=== PATIENT | female | born 1980 | race Caucasian/White ===

== ENCOUNTER 2018-03-15 20:22 | Emergency (ER) | payer BC ==
[~2018-03-15] VITALS: Ht 167.6 cm; Wt 85.3 kg
--- NOTE | 2018-03-15 21:07 | RAD ---
Indication:Fall on stairs today, severe pain, swelling TECHNIQUE: 3 views of the right ankle COMPARISON:None FINDINGS: There is an oblique mildly displaced fracture through the distal fibula. Ankle mortise is not widened. There is mild ankle swelling. IMPRESSION: Mildly displaced Fracture of the lateral malleolus. Electronically signed by: Michoacano Ramírez DO (03/15/2018 9:04 PM) [facility]
--- NOTE | 2018-03-15 21:45 | PHYS DOC ---
Past History Past Medical History: No Pertinent History Past Surgical History: Appendectomy Alcohol Use: Rarely Drug Use: None Adult General Chief Complaint Chief Complaint: ANKLE PROBLEM HPI HPI 38-year-old female presents with right ankle pain. The patient was walking down some steps in her house in the dark and thought she was last step when she went to step forward, she still had one step to go. She stumbled forward and as she did her right foot went on angle as she fell. There was a boat in front of the patient, so she was able to catch herself from falling completely, but she had immediate ankle pain and was unable to stand on her foot. She was able to get up and take a few steps to get out of the room, but had extreme pain. At this time, her pain is 5 out of 10, but 9 out of 10 if she moves the ankle. It is swollen. Patient denies loosing consciousness. She denies any other injuries. Review of Systems Review of Systems Constitutional: Denies fever or chills [] Eyes: Denies change in visual acuity, redness, or eye pain [] HENT: Denies nasal congestion or sore throat [] Respiratory: Denies cough or shortness of breath [] Cardiovascular: No additional information not addressed in HPI [] GI: Denies abdominal pain, nausea, vomiting, bloody stools or diarrhea [] : Denies dysuria or hematuria [] Musculoskeletal: Right ankle pain[] Integument: Denies rash or skin lesions [] Neurologic: Denies headache, focal weakness or sensory changes [] Endocrine: Denies polyuria or polydipsia [] All other systems were reviewed and found to be within normal limits, except as documented in this note. Allergies Allergies Allergies Coded Allergies Type Severity Reaction Last Updated Verified No Known Drug Allergies 03/15/18 No Physical Exam Physical Exam Constitutional: Well developed, well nourished, no acute distress, non-toxic appearance. [] HENT: Normocephalic, atraumatic, bilateral external ears normal, oropharynx moist, no oral exudates, nose normal. [] Eyes: PERRLA, EOMI, conjunctiva normal, no discharge. [] Neck: Normal range of motion, no tenderness, supple, no stridor. [] Cardiovascular:Heart rate regular rhythm, no murmur [] Lungs & Thorax: Bilateral breath sounds clear to auscultation [] Abdomen: Bowel sounds normal, soft, no tenderness, no masses, no pulsatile masses. [] Skin: Warm, dry, no erythema, no rash. [] Back: No tenderness, no CVA tenderness. [] Extremities: Swollen right ankle on the lateral side. Pain with palpation of the lateral malleolus. No ecchymosis or erythema. Neurovascularly intact[] Neurologic: Alert and oriented X 3, normal motor function, normal sensory function, no focal deficits noted. [] Psychologic: Affect normal, judgement normal, mood normal. [] Current Patient Data Vital Signs Vital Signs Date Time Temp Pulse Resp B/P (MAP) Pulse Ox O2 Delivery O2 Flow Rate FiO2 03/15/18 20:35 97.6 69 16 98 Room Air EKG EKG [] Radiology/Procedures Radiology/Procedures [] Impressions: Indication:Fall on stairs today, severe pain, swelling TECHNIQUE: 3 views of the right ankle COMPARISON:None FINDINGS: There is an oblique mildly displaced fracture through the distal fibula. Ankle mortise is not widened. There is mild ankle swelling. IMPRESSION: Mildly displaced Fracture of the lateral malleolus. Electronically signed by: Michoacano Almeida DO (03/15/2018 9:04 PM) [facility] DICTATED AND SIGNED BY: MICHOACANO ALMEIDA DO DATE: 03/15/182102 CC: TIMA GRIMALDO DO ~ Course & Med Decision Making Course & Med Decision Making Pertinent Labs and Imaging studies reviewed. (See chart for details) The patient has a mildly displaced fracture of the lateral malleolus. The tibia is not involved. We will place the patient in a splint and give her orthopedic referral. I will prescribe [place] 5/325 for pain. [] Dragon Disclaimer Dragon Disclaimer This electronic medical record was generated, in whole or in part, using a voice recognition dictation system. Departure Departure: Referrals: LEANDRO BENJAMIN (PCP) Scripts Hydrocodone Bit/Acetaminophen ([place] 5-325 TABLET) 1 Each Tablet 1 TAB PO PRN Q6HRS PRN for PAIN, #14 TAB 0 Refills Prov: TIMA GRIMALDO DO 03/15/18 TIMA GRIMALDO DO Mar 15, 2018 21:44
[2018-03-15 22:03] VITALS: BP 144/79
[2018-03-15] MEDS ORDERED: HYDROcodone/APAP 5/325MG 1 TAB TABLET PO ONE (22:15)
[2018-03-15] MEDS ORDERED: HYDR-971 PO (22:21)
== END 2018-03-15 22:30 | disposition home or self-care (01) ==
LOC: ER 20:22
DX: S82.61XA Displaced fracture of lateral malleolus of right fibula, initial encounter for closed fracture (principal); W01.0XXA Fall on same level from slipping, tripping and stumbling without subsequent striking against object, initial encounter; Y93.01 Activity, walking, marching and hiking; Y92.89 Other specified places as the place of occurrence of the external cause; Y99.8 Other external cause status
CPT/HCPCS: 29515; 73610; 99284

== ENCOUNTER 2018-11-29 07:04 | Emergency (ER) | payer BC ==
[~2018-11-29] VITALS: Ht 167.6 cm; Wt 79.4 kg
[2018-11-29 07:04] VITALS: BP 110/79
[~2018-11-29 07:04] MED LIST: HYDR-3165 PO
[2018-11-29] MEDS ORDERED: NEOMY/BACITR/POLYMYXIN OINT PACKET. TP ONE (07:15)
[2018-11-29] MEDS ORDERED: LIDOCAINE 2%/EPI 1:100,000 20 ML VIAL. IJ ONE (07:15)
--- NOTE | 2018-11-29 07:22 | PHYS DOC ---
Past History Past Medical History: No Pertinent History Past Surgical History: Appendectomy Alcohol Use: Rarely Drug Use: None Adult General Chief Complaint Chief Complaint: Finger laceration HPI HPI 38-year-old female presents with right index finger laceration which occurred just prior to arrival. Patient reports last tetanus shot greater than 5 years ago. Denies . Patient reports she was letting her dog out and it started to william a chicken. Patient reports her arm flung upward and she ended upon catching her finger on the edge of a trailer. Reports she has controlled bleeding with direct pressure. Denies other injury. Review of Systems Review of Systems Constitutional: Denies fever or chills [] Musculoskeletal: Denies deformity, laceration to right index finger Integument: Reports laceration to right index finger Neurologic: Denies headache, focal weakness or sensory changes [] Complete systems were reviewed and found to be within normal limits, except as documented in this note. Current Medications Current Medications Current Medications Medications (Trade) Dose Ordered Sig/Kendell Start Time Stop Time Status Last Admin Dose Admin Lidocaine/ Epinephrine (Xylocaine 2%-Epi 1:100,000) 20 ml 1X ONCE 11/29/18 07:15 11/29/18 07:16 UNV Neomycin/ Polymyxin/ Bacitracin (Triple Antibiotic Ointment) 1 pkt 1X ONCE 11/29/18 07:15 11/29/18 07:16 UNV Allergies Allergies Allergies Coded Allergies Type Severity Reaction Last Updated Verified No Known Drug Allergies 03/15/18 No Physical Exam Physical Exam Constitutional: Well developed, well nourished, no acute distress, non-toxic appearance. [] HENT: Normocephalic, atraumatic Eyes: Conjunctiva normal, no discharge. [] Neck: Normal range of motion, supple Cardiovascular: Right hand radial pulse +2, CR < 2 sec to right index finger Lungs & Thorax: No respiratory distress, no accessory muscle use Skin: Warm, dry, no erythema, right index finger laceration to dorsum of finger 8cm, tendon sheath. Extremities: ROM intact to right hand, laceration as above, tendon function intact to right hand Neurologic: Alert and oriented X 3, no focal deficits noted. [] Psychologic: Affect normal, judgement normal, mood normal. [] EKG EKG [] Radiology/Procedures Radiology/Procedures [] Course & Med Decision Making Course & Med Decision Making Patient presents with laceration to right index finger. Tetanus updated. Wound cleaned, explored, irrigated, and repaired with sutures. Dressing applied. Empiric antibiotics given due to tendon sheath exposure. Finger splint applied for protection of sutures. Patient stable for discharge with outpatient follow-up with PCP. Discussed findings and plan with patient, who acknowledges understanding and agreement. Dragon Disclaimer Dragon Disclaimer This electronic medical record was generated, in whole or in part, using a voice recognition dictation system. Splinting Splinting : Location: Right index finger Pre-Made Type: metal (finger splint) Pre-Proc Neuro Vasc Exam: normal Post-Proc Neuro Vasc Exam: normal, unchanged from pre-exam Laceration/Wound Repair Laceration/Wound Repair : Wound Location: upper extremity (Dorsum of right index finger) Wound's Depth, Shape: linear Wound Length (cm): 8 Wound Explored: contaminated (no foreign body noted on exploration) Irrigated w/ Saline (ccs): 250 Anesthesia: Lidocaine w/ Epi (2%) Volume Anesthetic (ccs): 3 Wound Debrided: minimal Wound Repaired With: sutures (Nylon) Suture Size/Type: 5:0 Number of Sutures: 16 Sterile Dressing Applied?: Yes Splint Applied?: Yes (aluminum finger splint) Progress Verbal consent obtained. Time out performed. Hand hygiene utilized. Wound cleaned with ChloraPrep. Anesthesia obtained via 4 nerve block to base of index finger with a 25-gauge hypodermic needle with (3) mL's of lidocaine 2% with epinephrine. Adequate anesthesia obtained. Copious irrigation performed with 250mls. Wound well approximated with 5-0 Nylon x 16 (sutures). Patient tolerated procedure well and without difficulty. Empiric antibiotic ointment applied prior to sterile dressing. Aluminum finger splint applied. Departure Departure: Impression: Primary Impression: Finger laceration Disposition: 01 HOME, SELF-CARE Condition: STABLE Referrals: LEANDRO BENJAMIN (PCP) Patient Instructions: Laceration Care, Adult, [id number], Sutured Wound Care , [id number] Additional Instructions: Do not soak your wound. You may shower. Clean wound daily with soap and water. Change dressing 2 times daily. Use over the counter antibiotic ointment with each dressing change. Sutures need to be removed in 7-10 days. Present to your family doctor or local urgent care for removal. You may also present to the ED but it will be an additional visit/charge. After suture removal you may use Vitamin E ointment to soften the wound and prevent scarring. Use over the counter Tylenol and Ibuprofen for pain or discomfort. Scripts Amoxicillin/Potassium Clav (AUGMENTIN 875-125 TABLET) 1 Each Tablet 1 TAB PO BID for Infection risk for 5 Days, #10 TAB Prov: THIAGO SALCIDO DO 11/29/18 Problem Qualifiers Primary Impression: Finger laceration Encounter type: initial encounter Finger: index finger Damage to nail status: without damage Foreign body presence: without foreign body Laterality: right Qualified Codes: S61.210A - Laceration without foreign body of right index finger without damage to nail, initial encounter THIAGO SALCIDO DO Nov 29, 2018 07:22
[2018-11-29] MEDS ORDERED: DIPHTH,PERTUSS(ACELL),TET TOX 0.5 ML DISP.SYRIN. VAX IM ONE (07:45)
[2018-11-29] MEDS ORDERED: AMOX1TAB61 PO (08:29)
[2018-11-29] MEDS ORDERED: AMOXICILLIN/K CLAV 875/125MG TABLET. PO ONE (08:30)
== END 2018-11-29 08:51 | disposition home or self-care (01) ==
LOC: ER 07:04
DX: S61.210A Laceration without foreign body of right index finger without damage to nail, initial encounter (principal); W26.8XXA Contact with other sharp object(s), not elsewhere classified, initial encounter; Y93.K1 Activity, walking an animal; Y92.89 Other specified places as the place of occurrence of the external cause; Y99.8 Other external cause status
CPT/HCPCS: 12004; 90471; 90715; 99283